=== PATIENT | female | born 1950 | race Caucasian/White ===

== ENCOUNTER 2018-03-20 10:15 | Emergency (ER) | payer MEDICARE, OTHER ==
[~2018-03-20] VITALS: Ht 162.6 cm; Wt 136.1 kg
[2018-03-20] MEDS ORDERED: COUMADIN5 MG PO (10:30)
[2018-03-20] MEDS ORDERED: CARTIA XT180 MG PO (10:30)
[2018-03-20] MEDS ORDERED: ZITHROMAX250 MG PO (10:48)
[2018-03-20] MEDS ORDERED: VENTOLIN HFA18 GM INH (10:48)
[2018-03-20] MEDS ORDERED: TESSALON PERLE100 MG PO (10:48)
[2018-03-20] MEDS ORDERED: METHYLPREDNISOLO4 M1 PO (10:48)
== END 2018-03-20 10:58 | disposition home or self-care (01) ==
LOC: ED 10:15
DX: J40 Bronchitis, not specified as acute or chronic (principal); Z87.891 Personal history of nicotine dependence; Z88.0 Allergy status to penicillin; Z91.040 Latex allergy status; Z79.01 Long term (current) use of anticoagulants; Z79.899 Other long term (current) drug therapy
CPT/HCPCS: 99283